=== PATIENT | female | born 1990 | race Caucasian/White ===

== ENCOUNTER 2017-01-20 11:34 | Emergency (ER) | payer SELFPAY ==
[2017-01-20 12:05] VITALS: TEMP 98.5
[2017-01-20] MEDS: LIDOCAINE VIS-MYLANTA 30 ML UD PO ONE ×2 (12:12→19:24)
--- NOTE | 2017-01-20 12:12 | RAD ---
EXAM DESCRIPTION: Fingers,Right CLINICAL HISTORY: 26 yearsFemale, wrist and 2nd digit pain after fall COMPARISON: None. IMPRESSION: 3 views of the right fingers demonstrate no evidence of acute fracture, dislocation, or destructive osseous lesion. Mild soft tissue swelling in the second digit. Electronically signed by: Vick Hollis MD 01/20/2017 12:12 PM CDT
--- NOTE | 2017-01-20 12:13 | RAD ---
EXAM DESCRIPTION: Wrist,Right 3 Views CLINICAL HISTORY: Wrist pain after fall injury FINDINGS/ IMPRESSION: Negative ulnar variance. Normal mineralization. No advanced osteoarthritis No fracture or focal osteochondral lesion of the wrist. If there is focal anatomic snuffbox tenderness, consider ulnar deviation radiograph to better evaluate the scaphoid Electronically signed by: Russ Ivey MD 01/20/2017 12:12 PM CDT
--- NOTE | 2017-01-20 12:25 | ED.PDOC ---
History of Present Illness - General Chief Complaint: Upper Extremity Injury Time Seen by Provider: 01/20/17 11:39 Source: patient Exam Limitations: no limitations - History of Present Illness Initial Comments: the patient is a 26-year-old female presenting to the emergency room secondary to having fallen yesterday and landed on her right wrist. She has pain primarily in the ulnar aspect of the wrist. There is no gross deformity. She also has some pain with the second digit but there is no foreign deformity there as well. She is neurovascularly preserved. No other injuries. No lacerations. Occurred: yesterday Pain - Upper Extremity: mild: Wrist, right Method of Injury: fell Improving Factors: immobilization Worsening Factors: movement Allergies/Adverse Reactions: Allergies Cephalosporins Allergy (Verified 01/20/17 12:05) Home Medications: Ambulatory Orders Albuterol Inhaler [Proventil Hfa Inhaler] 2 puff INH Q4H PRN 01/20/17 Review of Systems - Review of Systems Constitutional: States: no symptoms reported EENTM: States: no symptoms reported Respiratory: States: no symptoms reported Cardiology: States: no symptoms reported Gastrointestinal/Abdominal: States: no symptoms reported Genitourinary: States: no symptoms reported Musculoskeletal: States: see HPI Skin: States: no symptoms reported Neurological: States: no symptoms reported Endocrine: States: no symptoms reported All other Systems: No Change from Baseline Past Medical History (General) - Patient Medical History Hx Stroke: No Hx Asthma: Yes Hx of COPD: Yes Hx Congestive Heart Failure: No Hx Diabetes: No Hx Renal Disease: - has a hx of kidney stones Surgical History: tonsillectomy - Vaccination History Hx Influenza Vaccination: No Hx Pneumococcal Vaccination: No - Social History Hx Tobacco Use: Yes - Female History Patient is a Female of Child Bearing Age (10 -59 yrs old): Yes Patient : No Family Medical History - Family History Mother Family History: Unknown Living Status: Still Living Hx Cardiac Disease: Yes Physical Exam - Physical Exam General Appearance: Alert, Comfortable, No apparent distress Eyes, Ears, Nose, Throat Exam: PERRL/EOMI Neck: full range of motion, supple Cardiovascular/Respiratory: normal peripheral pulses, no respiratory distress Shoulder Exam: normal inspection, non-tender, no evidence of injury, normal ROM Elbow/Forearm Exam: normal inspection, non-tender, no evidence of injury, normal ROM Wrist Exam: pain, soft tissue tenderness - see history of present illness. There is no pain in the anatomic snuffbox. Hand Exam: swelling - mild and over the proximal interphalangeal joint of the second digit of the right hand. Tendon function is preserved. Sensations preserved. Neuro/Tendon: normal sensation, normal motor functions, normal tendon functions Mental Status: alert, oriented x 3 Skin Exam: normal color Comments: Vital Signs - 24 hr 01/20/17 11:45 Temperature 98.5 F Pulse Rate [ 82 Left Radial] Respiratory 18 Rate Blood Pressure 119/82 [Left Arm] O2 Sat by Pulse 96 Oximetry Progress - Progress Progress: 01/20/17 12:25 the patient is a 26-year-old female that fell yesterday and essentially sprained her right wrist and second finger of the right hand. X- rays of the hand and wrist are negative for any acute fracture or dislocation. She has a 5 pound lifting limit on the right hand for the next week. Ibuprofen can be used for discomfort. ER warnings were given for any worsening. Departure - Departure Clinical Impression: Wrist sprain Qualifiers: Encounter type: initial encounter Laterality: right Qualified Code(s): S63.501A - Unspecified sprain of right wrist, initial encounter Finger sprain Qualifiers: Encounter type: initial encounter Qualified Code(s): S63.619A - Unspecified sprain of unspecified finger, initial encounter Disposition: Discharge to Home or Self Care Condition: Fair Departure Forms: ED Discharge - Pt. Copy, Patient Portal Self Enrollment Instructions: DI for Wrist Sprain Diet: regular diet Activity: other - 5 lifting limit on the right hand for 2 weeks. Referrals: Kaykay Roberts NP [Primary Care Provider] - 1-2 Weeks Home Medications: Ambulatory Orders Albuterol Inhaler [Proventil Hfa Inhaler] 2 puff INH Q4H PRN 01/20/17 Additional Instructions: the patient is a 26-year-old female that fell yesterday and essentially sprained her right wrist and second finger of the right hand. X- rays of the hand and wrist are negative for any acute fracture or dislocation. She has a 5 pound lifting limit on the right hand for the next week. Ibuprofen can be used for discomfort. ER warnings were given for any worsening.
[2017-01-20 19:27] VITALS: BP 111/71; O2SAT 97
== END 2017-01-20 12:50 | disposition home or self-care (01) ==
LOC: ER 11:34
DX: S63.610A Unspecified sprain of right index finger, initial encounter (principal); S63.501A Unspecified sprain of right wrist, initial encounter; J44.9 Chronic obstructive pulmonary disease, unspecified; Z88.8 Allergy status to other drugs, medicaments and biological substances; Z79.899 Other long term (current) drug therapy; Z87.442 Personal history of urinary calculi; W19.XXXA Unspecified fall, initial encounter